=== PATIENT | female | born 1980 | race Caucasian/White ===

== ENCOUNTER 2018-09-12 10:33 | Emergency (ER) | payer OTHER, SELFPAY ==
[2018-09-12 10:33] VITALS: BP 121/72; PULSE 84; RESP 16; TEMP 37.1; O2SAT 96; BMI 34.2
--- NOTE | 2018-09-12 10:49 | US_ITS ---
STUDY: ABDOMINAL ULTRASOUND REASON FOR EXAM: Female, 38 years old. TECHNIQUE: Transabdominal ultrasound was performed with real-time and static villaseñor scale imaging. TECHNICAL QUALITY: Adequate. COMPARISON: None. FINDINGS: Liver: The liver measures 11.6 cm. There is normal echogenicity of the liver. The bile ducts are within normal limits. There is hepatic color flow. The direction of portal flow is hepatopetal. There is no demonstrated mass lesion. Portal vein measurement: Gallbladder: Normal distended gallbladder. The gallbladder wall measures 2 mm. There is a negative sonographic Zaidi's sign. There is no pericholecystic fluid. There are no gallstones. Minimal septation within the gallbladder noted Common Bile Duct (C.B.D.): The common bile duct measures 3 mm. Pancreas: Limited study of the pancreas because of patient could not hold her breath however grossly the pancreas is within normal limits Spleen: Normal size of the spleen. The spleen measures cm. Right Kidney: Normal size of the right kidney. The right kidney measures 10.3 x 4.6 cm. Normal renal cortex. The right cortex measures 1.2 cm. There is no demonstrated renal mass or cyst. There is no right hydronephrosis. This examination wasn't dedicated for the right upper quadrant only US/Gallbladder IMPRESSION: Negative ultrasound of the right upper quadrant Electronically Signed: Meenakshi Lacy, at 14:32 EST Tel , Service support ,
--- NOTE | 2018-09-12 10:50 | ED.VISSUMM ---
- ER Visit Summary Date of Service: 09/12/18 Chief Complaint: Abdominal pain History of Present Illness: The patient is a 38 F with right upper quadrant abdominal pain. The symptoms started 2 days ago after eating liver and onions. Associate with nausea, vomiting, and diarrhea. Worse with food. Pain does not radiate. No other associated symptoms like fever or jaundice. She does have some burning and urinary frequency. Denies CHIEF DEPUTY CLERK/BAILIFF symptoms. Denies any past medical history. She had a . Physical Examination: Afebrile and vital signs unremarkable. No acute distress. Alert and oriented. Skin appears normal without pallor or jaundice. Heart regular. Lungs clear. Abdomen is tender in the right upper quadrant. No guarding or rebound. No CVA tenderness. Test Results: Ultrasound, labs, urinalysis pending. Emergency Department Course and Treatment: Patient declined pain medicine. Was treated with IV fluids while awaiting results. CBC unremarkable. CMP unremarkable. Lipase normal. Urinalysis shows signs of contamination. test was negative. Ultrasound was negative. Patient had continued nausea, but pain is under control. She will be prescribed a course of Zofran. Follow-up for outpatient testing regarding right upper quadrant abdominal pain. I am still concern for biliary colic. I also considered gastric causes of her pain. She does not have cardiac or respiratory symptoms. Does not have urinary symptoms. Return for anything new or worsening. Treatment Plan: As above Disposition: Discharge Impression:1. Right upper quadrant pain] This note was generated with [employer] dictation software. It may contain incorrect words, spelling, and punctuation that were not noted in review of the chart prior to signing ED Disposition - Plan for ED Patient: Chief Complaint: Abd Pain
[2018-09-12 11:04] LABS: Bacteria 0 SEEN /hpf (None Seen); Mucous, Urine 0 SEEN /hpf (<or=2+); Red Blood Cells-Urine 0 SEEN /hpf (0-5)
[2018-09-12 11:06] LABS: Color, Urine Yellow (Yellow); Glucose, Dipstick Normal (Normal); Ketone-Dipstick Negative (Negative); Leukocyte Esterase-Dipstick 500 /ul (Negative); Nitrite-Dipstick Negative (Negative); Occult Blood-Urine 10 /ul (Negative); Protein-Dipstick Negative (Negative); Specific Gravity, Urine 1.005 (1.002-1.030); Urine Bilirubin Dipstick Negative (Negative); Urine Clarity Clear (Clear); Urine Urobilinogen Normal (Normal)
[2018-09-12 11:11] LABS: Internal QC Validated? YES +Cl - CLEAR BKGD; Pregnancy, Urine Negative Negative
[2018-09-12] MEDS: 0.9% Normal Saline 1,000 ML 1000 ML IV (11:13)
[2018-09-12 11:14] LABS: Squamous Epithelial Cells - UA 5-10 SEEN /hpf (5-10); White Blood Cells 0-5 SEEN /hpf (0-5)
[2018-09-12 11:17] LABS: Absolute Lymphocyte Count 1.51 X10^3/ul (0.83-4.51); Absolute Neutrophil Count 2.9 X10^3/uL (2.0-7.7); Basophil# 0.02 X10^3/uL; Basophil% 0.4 % (0-1); Eosinophil# 0.04 X10^3/uL; Eosinophils% 0.8 % (0-5); Hematocrit 39.7 % (37-47); Hemoglobin 13.5 g/dl (12.0-15.0); Lymphocyte # 1.51 X10^3/ul (4.0); Lymphocyte % 30.2 % (19-41); Mean Corpuscular Volume 82.4 fL (81-99); Monocyte# 0.53 X10^3/uL; Monocyte% 10.6 % (0-10); Platelet Count 287 K/mm3 (150-450); RBC Distribution Width CV 12.6 % (11.6-14.6); RBC Distribution Width SD 38.1 fl (35.1-43.9); Red Blood Count 4.82 M/mm3 (4.2-5.4)
[2018-09-12 11:18] LABS: POSITIVE COUNT NO; POSITIVE DIFFERENTIAL NO; POSITIVE MORPHOLOGY NO
[2018-09-12 11:30] LABS: ALB/GLOB Ratio 1.2 RATIO (0.9-2.4); AST(SGOT) 17 U/L (15-37); Alanine Aminotransfer ALT/SGPT 25 U/L (13-56); Albumin, Serum 3.7 g/dL (3.2-5.0); Alkaline Phosphatase 59 U/L (45-117); Anion Gap 8 (5-15); BUN 9 mg/dL (7-18); BUN/Creat Ratio 12.6 RATIO (10-20); Calcium,Total 8.5 mg/dL (8.5-10.1); Chloride 107 mmol/L (98-107); Creatinine, Serum 0.72 mg/dL (0.55-1.02); EST Glomerular Filtration Rate 97 mL/min (>60); Est Glom Filt Rate - Afr Amer 117 mL/min (>60); Globulin 3.2 g/dL (2.2-4.2); Glucose 121 mg/dL (74-106); Lipase 96 U/L (73-393); Potassium 3.4 mmol/L (3.5-5.1); Protein, Total 6.9 g/dL (6.4-8.2); Sodium Level 139 mmol/L (136-145)
--- NOTE | 2018-09-12 14:53 | ED.DEP ---
ED Disposition - Plan for ED Patient: Chief Complaint: Abd Pain Instructions: ED Abdominal Pain Unkn Cause Prescriptions: Ondansetron [Zofran Odt] 4 mg PO Q8H PRN PRN #10 tab PRN Reason: Nausea Ibuprofen [Motrin] 800 mg PO TID PRN PRN #20 tab PRN Reason: Pain Referrals: Shay Duncan [Primary Care Provider] -
[2018-09-12 15:28] VITALS: BP 124/68; PULSE 71; RESP 15; O2SAT 97
== END 2018-09-12 15:29 | disposition home or self-care (01) ==
LOC: ED 10:59
PROVIDERS: Emergency Provider Emergency Medicine; Family Provider Family Medicine; PCP Family Medicine
DX: R10.11 Right upper quadrant pain (principal); R11.2 Nausea with vomiting, unspecified
CPT/HCPCS: 76705; 80053; 81001; 81025; 83690; 85025; 96360; 96361; 99283; J7030; A4216